=== PATIENT | male | born 2005 | race African-American/Black ===

== ENCOUNTER 2025-03-21 16:01 | Emergency (ER) | payer MEDICAID, SELFPAY ==
[2025-03-21] VITALS (9 sets, daily range): BP systolic 85–133; BP diastolic 47–72; PULSE 64–94; RESP 11–18; TEMP 36.6–36.7; O2SAT 98–100; BMI 22.4
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
--- NOTE | 2025-03-21 18:13 | CT_ITS ---
PROCEDURE: CT CHEST, ABD, PEL W/CONTRAST 03/21/2025 REASON FOR EXAM: [facility] TECHNIQUE: CT CHEST, ABD, PEL W/CONTRAST coronal and Sagittal reconstruction series were provided. One or more dose reduction techniques were used (e.g., Automated exposure control, adjustment of the mA and/or kV according to patient size, use of iterative reconstruction technique. RADIATION DOSE SUMMARY: CTDlvol: 45 mGy DLP: 2107 mGycm COMPARISON: None FINDINGS: CHEST: Lines and tubes: None Mediastinum: Unremarkable Heart: Normal size. No coronary calcification. Thoracic Aorta: No thoracic aortic aneurysm or dissection. Lungs and Airways: The lungs are normally expanded and clear. Pleura: No effusion. Bones: No displaced fracture. ABDOMEN AND PELVIS: Liver: Unremarkable. Gallbladder: Unremarkable Spleen: Normal size. Pancreas: Normal size without evidence of mass surrounding inflammation or ductal dilation. Adrenals: Unremarkable. Kidneys: No stones or hydronephrosis. Bladder: Unremarkable Reproductive Organs: Unremarkable Bowel: No obstruction or inflammation. Vasculature: The abdominal aorta and IVC are normal. Peritoneum / Retroperitoneum: No free fluid identified. Bones: No displaced fracture. CT/CT Chest, Abd, Pel w/Contrast IMPRESSION: No acute traumatic abnormality in the chest, abdomen, or pelvis. Reading Location: [id number]
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
[2025-03-21] MEDS: Morphine 4 MG/ML Syringe IV (18:25)
[2025-03-21] MEDS: 0.9% Normal Saline (1000mL) 1,000 ML 999 ML IV (18:25)
[2025-03-21] MEDS: Ondansetron 4 MG/2 ML Vial IV (18:25)
[2025-03-21] MEDS: Diphth,Pertuss(Acell),Tet Vac 0.5 ML Vial IM (18:26)
[2025-03-21 18:28] LABS: Absolute Lymphocyte Count 0.96 X10^3/uL (0.83-4.51); Absolute Neutrophil Count 11.8 X10^3/uL (2.0-7.7); Basophil# 0.05 X10^3/uL; Basophil% 0.4 % (0-1); Eosinophil# 0.06 X10^3/uL; Eosinophils% 0.4 % (0-5); Hematocrit 42.7 % (40-54); Hemoglobin 14.6 g/dL (13.0-16.5); Lymphocyte # 0.96 X10^3/ul (0.83-4.51); Mean Corp Hgb Conc 34.2 g/dL (32-36); Mean Corpuscular Hgb 28.5 pg (27.0-32.0); Mean Corpuscular Volume 83.2 fL (80-94); Mean Platelet Vol. 8.9 fl (6.2-12.0); Monocyte# 0.71 X10^3/uL; Monocyte% 5.2 % (0-10); NRBC Flagged by Analyzer 0 % (0-5); Neutrophil # 11.77 X10^3/uL (2.7-7.7); Neutrophil % 86.4 % (47-70); Platelet Count 227 K/mm3 (150-450); RBC Distribution Width CV 12.1 % (11.6-14.6); RBC Distribution Width SD 37.1 fl (35.1-43.9); Red Blood Count 5.13 M/mm3 (4.6-6.2); White Blood Count 13.6 K/mm3 (4.4-11.0)
[2025-03-21 18:38] LABS: International Normalized Ratio 1.1; Prothrombin Time (Protime)PT. 14.7 SECONDS (11.7-14.9)
[2025-03-21 18:39] LABS: Partial Thromboplast Time 26.3 Seconds (24.1-36.2)
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
[2025-03-21 18:56] LABS: AST(SGOT) 25 U/L (<=37); Alanine Aminotransfer ALT/SGPT 21 U/L (<=46); Albumin, Serum 4.6 g/dL (3.5-5.0); Alkaline Phosphatase 73 U/L (40-129); Anion Gap 11 (5-15); BUN 11 mg/dL (4-19); BUN/Creat Ratio 11.2 RATIO (10-20); Bilirubin, Direct 0.23 mg/dL (0.00-0.30); Calcium,Total 9.5 mg/dL (7.6-11.0); Carbon Dioxide 25.2 mmol/L (21.0-32.0); Chloride 105 mmol/L (98-108); Creatinine, Serum 1.02 mg/dL (0.70-1.20); EST Glomerular Filtration Rate 109 (>60); Estimated Creatinine Clearance 106.76 ml/min (50-250); Globulin 2.6 g/dL (2.2-4.2); Glucose 96 mg/dL (70-99); Potassium 3.9 mmol/L (3.3-5.1); Protein, Total 7.3 g/dL (5.9-8.4); Sodium Level 141 mmol/L (133-145); Total Bilirubin 0.59 mg/dL (0.00-1.30)
[2025-03-21] MEDS: Lidocaine 1% (20 ml mdv) 20 ML Vial 10 ML INFILT (20:18)
[2025-03-21] MEDS: Orphenadrine 60 MG/2 ML Ampul 30 MG IV (21:07)
[2025-03-21] MEDS: Ketorolac 15 MG/ML Vial IV (21:08)
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
== END 2025-03-21 23:43 | disposition home or self-care (01) ==
PROVIDERS: Emergency Provider Emergency Medicine; Visit Provider Emergency Medicine
DX: S51.811A Laceration without foreign body of right forearm, initial encounter (principal); V48.0XXA Car driver injured in noncollision transport accident in nontraffic accident, initial encounter; M25.521 Pain in right elbow; Z23 Encounter for immunization
CPT/HCPCS: 12004; 70450; 71260; 72125; 73080; 73090; 73502; 73564; 74177; 80048; 80076; 85025; 85610; 85730; 90471; 90715; 93005; 96361; 96374; 96375; 99285; Q9967; A4216; J2405